=== PATIENT | male | born 1975 | race Caucasian/White ===

== ENCOUNTER 2020-10-23 15:41 | Observation (INO) | payer OTHER ==
[~2020-10-23] VITALS: Ht 177.8 cm; Wt 99.8 kg
[~2020-10-23 15:41] MED LIST: ANTIVERT 25MG T25 MG PO; COZAAR25 MG PO; HYDROCHLOROTHIA25 MG PO; LIPITOR TAB 2020 MG PO; LODINE CAP 300300 MG PO; LOPRESSOR 25 MG25 MG PO; NITROSTAT0.4 MG SL; NORVASC 5 MG TAB5 MG PO; PROTONIX40 MG PO; TOPAMAX50 MG PO; ZOFRAN ODT 4 MG4 MG PO
[2020-10-23 16:43] LABS: BUN/CREATININE RATIO 9 (0-10)
[2020-10-23 17:21] LABS: HEMOGLOBIN 13.2 gm/dl (14.0-17.5); RED BLOOD COUNT 4.05 M/UL (4.20-5.50); WHITE BLOOD COUNT 14.1 K/UL (4.5-11.0)
[2020-10-23] MEDS ORDERED: METFORMIN HCL750 MG PO (22:58)
[2020-10-24 06:03] LABS: HEMOGLOBIN 12.8 gm/dl (14.0-17.5); RED BLOOD COUNT 3.97 M/UL (4.20-5.50); WHITE BLOOD COUNT 12.7 K/UL (4.5-11.0)
[2020-10-24 06:23] LABS: BUN/CREATININE RATIO 11 (0-10)
[2020-10-24] MEDS ORDERED: TYLENOL EXTRA500 MG PO (09:38)
[2020-10-24] MEDS ORDERED: COLACE100 MG PO (11:57)
[2020-10-24] MEDS ORDERED: HYDROCODON-ACE1 EAC6 PO (11:57)
[2020-10-24] MEDS ORDERED: CYCLOBENZAPRINE10 MG PO (11:57)
== END 2020-10-24 12:58 | disposition home or self-care (01) ==
LOC: ER1 15:41 → CDU 17:25 → MED SURG 4 17:25
PROVIDERS: Emergency Medicine; ADMIT Surgery
DX: S21.132A Puncture wound without foreign body of left front wall of thorax without penetration into thoracic cavity, initial encounter (principal); Z20.822 Contact with and (suspected) exposure to COVID-19; R58 Hemorrhage, not elsewhere classified; W26.0XXA Contact with knife, initial encounter; R10.84 Generalized abdominal pain; S16.1XXA Strain of muscle, fascia and tendon at neck level, initial encounter; S29.012A Strain of muscle and tendon of back wall of thorax, initial encounter; S20.219A Contusion of unspecified front wall of thorax, initial encounter
CPT/HCPCS: 36415; 36430; 71045; 71260; 80048; 80053; 82550; 82553; 82962; 83605; 83874; 84484; 85025; 85610; 85730; 86850; 86900; 86901; 86920; 90471; 90715; 96374; 96376; 99285; G0378; G0480; J1100; J1170; J2001; J2250; J2270; J2370; J2405; J2704; J3010; J3370; J7120; P9016; Q9967; U0002